=== PATIENT | female | born 1935 | race Two or more races ===

== ENCOUNTER 2016-07-15 17:21 | Inpatient (IN) | payer MEDICARE, OTHER ==
[~2016-07-15] VITALS: Ht 162.6 cm; Wt 99.8 kg
[2016-07-15 18:31] LABS: Basophils # (auto) 0 uL; Eosinophils # (auto) 0 uL; Eosinophils % (auto) 0.1 % (0.0-7.0); Hematocrit 44.9 % (36.0-46.0); Hemoglobin 14.4 g/dL (12.2-16.2); Lymphocytes # (auto) 0.7 uL; Lymphocytes % (auto) 9.5 % (10.0-50.0); Mean Corpuscular Hemoglobin 28.9 pg (28.0-32.0); Mean Corpuscular Volume 90.5 fL (80.0-100.0); Mean Platelet Volume 8.5 fL (7.4-10.4); Monocytes # (auto) 0 uL; Monocytes % (auto) 0.2 % (0.0-12.0); Neutrophils % (auto) 90.2 % (37.0-80.0); Platelet Count (auto) 243 10^3/uL (140-450); Red Cell Distribution Width 14.9 % (11.6-16.0); White Blood Cell 7.8 10^3/uL (4.4-10.8)
[2016-07-15 18:59] LABS: Albumin 3.4 g/dL (3.4-5.0); BUN/Creatinine Ratio 15.7; Magnesium 2.2 mg/dL (1.6-2.6); Potassium 3.6 mmol/L (3.5-5.1)
[2016-07-15 19:02] LABS: Bilirubin, Total 1.7 mg/dL (0.2-1.0); Total Protein 7.1 g/dL (6.4-8.2)
[2016-07-16] MEDS ORDERED: ONDANSETRON HCL 4 MG/2 ML VIAL IV ONE ×2 (01:15→07:45)
[2016-07-16] MEDS ORDERED: HYDROmorphone HCL 2 MG/ML VL IV ONE (01:15)
[2016-07-16] MEDS ORDERED: SODIUM CHLORIDE 0.9% 1,000 ML IV ONE ×3 (01:15→18:45)
[2016-07-16] MEDS ORDERED: FAMOTIDINE (10MG/ML) 2ML VL IV ONE (06:15)
[2016-07-16] MEDS ORDERED: methylPREDNISolone SOD SUCC 125 MG/2 ML VL IV ONE (06:15)
[2016-07-16] MEDS ORDERED: NOREPINEPHRINE BITARTRATE 250 ML IV ONE (06:25)
[2016-07-16] MEDS ORDERED: EPINEPHrine HCL 1 MG/1 ML AMP SC ONE (07:00)
[2016-07-16] MEDS ORDERED: cefTRIAXone 1GM/50ML D5W 50 ML IV ONE (07:00)
[2016-07-16] MEDS ORDERED: metroNIDAZOLE 500MG/100ML 100 ML IV ONE (07:00)
[2016-07-16] MEDS: NOREPINEPHRINE BITARTRATE 250 ML IV SCH (07:24)
[2016-07-16] MEDS ORDERED: ONDANSETRON HCL 4 MG/2 ML VIAL ONE (07:39)
[2016-07-16] MEDS ORDERED: SODIUM CHLORIDE 0.9% 1,000 ML IV SCH (08:18)
[2016-07-16] MEDS ORDERED: PROMETHAZINE HCL 25 MG/ML 1ML IV PRN (08:30)
[2016-07-16] MEDS ORDERED: LORazepam 2MG/ML-1ML VIAL IV PRN (08:30)
[2016-07-16] MEDS ORDERED: NITROGLYCERIN 0.4 MG SL TAB SL PRN (08:30)
[2016-07-16] MEDS ORDERED: MORPHINE SULF INJ 2 MG/ML SYRINGE 1ML IV PRN ×2 (08:30)
[2016-07-16] MEDS ORDERED: cefTRIAXone 1GM/50ML D5W 50 ML IV SCH (09:00)
[2016-07-16] MEDS: FAMOTIDINE (10MG/ML) 2ML VL IV SCH (09:45)
[2016-07-16] MEDS ORDERED: SODIUM CHLORIDE 0.9% 2,000 ML IV ONE (09:45)
[2016-07-16] MEDS ORDERED: FAMOTIDINE (10MG/ML) 2ML VL IV SCH (10:00)
[2016-07-16] MEDS ORDERED: metroNIDAZOLE 500MG/100ML 100 ML IV SCH (14:00)
[2016-07-16] MEDS ORDERED: ETOMIDATE (2MG/ML) 20ML VIAL IV ONE ×2 (14:49→14:59)
[2016-07-16] MEDS ORDERED: SUCCINYLCHOLINE CHLORIDE 20 MG/ML 10ML VIAL IV ONE ×2 (14:49→15:01)
[2016-07-16] MEDS ORDERED: PIPERACILLIN-TAZOB 3.375GM 100 ML IV ONE (15:00)
[2016-07-16] MEDS ORDERED: CLINDAMYCIN 600MG IV 50 ML IV ONE (15:00)
[2016-07-16 15:02] VITALS: BP 85/63
[2016-07-16] MEDS ORDERED: MIDAZOLAM DRIP 100 mg/100mL NS 100 ML IV ONE (15:23)
[2016-07-16] MEDS: MIDAZOLAM DRIP 100 mg/100mL NS 100 ML IV SCH (15:25)
[2016-07-16] MEDS ORDERED: EPINEPHrine HCL 1 MG/10 ML SYRG ONE (16:26)
[2016-07-16] MEDS ORDERED: SODIUM BICARBONATE 8.4% INJ 50ML SYRINGE ONE ×2 (16:27→17:04)
[2016-07-16 16:31] VITALS: BP 125/34
[2016-07-16] MEDS: SODIUM BICARB 50ML SYR 50 ML in D5W/SOD CHL 0.45% 1,000 ML IV SCH (17:15)
[2016-07-16] MEDS: PHENYLEPHRINE INJ 20 MG in SODIUM CHL 0.9% 250 ML IV SCH ×3 (17:40→21:14)
[2016-07-16] MEDS ORDERED: PIPERACILLIN-TAZOB 3.375GM 100 ML IV SCH (18:00)
[2016-07-16 18:23] VITALS: BP 134/76
[2016-07-16] MEDS ORDERED: EPINEPHrine HCL INJECTION 8 MG in D5W 5% 250 ML IV SCH (19:15)
[2016-07-16] MEDS ORDERED: SODIUM BICARBONATE 8.4 % INJ 50ML VIAL IV ONE ×2 (19:45→22:45)
[2016-07-16] MEDS: PIPERACILLIN-TAZOB 2.25GM 50 ML IV SCH ×2 (20:00→22:12)
[2016-07-16 20:11] VITALS: BP 61/59
[2016-07-16] MEDS: ACETAMINOPHEN 650 MG RECT SUPP PR PRN (21:45)
[2016-07-16 22:00] VITALS: BP 77/43
[2016-07-16] MEDS: CLINDAMYCIN 600MG IV 50 ML IV SCH (22:12)
[2016-07-16 23:22] LABS: INR 1.53 (0.9-1.15); Prothrombin Time 15.8 sec (9.37-12.3)
[2016-07-17] VITALS (10 sets, daily range): BP systolic 56–106; BP diastolic 31–61
[2016-07-17] MEDS: SODIUM BICARB 50ML SYR 50 ML in D5W/SOD CHL 0.45% 1,000 ML IV SCH ×3 (00:01→14:21)
[2016-07-17] MEDS: MIDAZOLAM DRIP 100 mg/100mL NS 100 ML IV SCH ×3 (00:03→00:05)
[2016-07-17] MEDS ORDERED: PHENYLEPHRINE IV 250 ML IV ONE ×2 (02:48→06:08)
[2016-07-17] MEDS ORDERED: PHENYLEPHRINE INJ 80 MG in SODIUM CHL 0.9% 250 ML IV SCH (03:00)
[2016-07-17] MEDS: NOREPINEPHRINE BITARTRATE 250 ML IV SCH ×2 (03:07→06:07)
[2016-07-17] MEDS ORDERED: SODIUM BICARBONATE 8.4 % INJ 50ML VIAL IV ONE (05:16)
[2016-07-17] MEDS: PIPERACILLIN-TAZOB 2.25GM 50 ML IV SCH (06:07)
[2016-07-17] MEDS: CLINDAMYCIN 600MG IV 50 ML IV SCH (06:07)
[2016-07-17] MEDS: PHENYLEPHRINE INJ 20 MG in SODIUM CHL 0.9% 250 ML IV SCH ×2 (06:29→14:21)
[2016-07-17 08:16] LABS: Basophils # (auto) 0 uL; Basophils % (auto) 0.2 % (0.0-2.0); Eosinophils # (auto) 0.2 uL; Eosinophils % (auto) 1.1 % (0.0-7.0); Hematocrit 44.6 % (36.0-46.0); Hemoglobin 14.3 g/dL (12.2-16.2); Lymphocytes # (auto) 2.4 uL; Lymphocytes % (auto) 15.2 % (10.0-50.0); Mean Corpuscular Hemoglobin 29.4 pg (28.0-32.0); Mean Corpuscular Hgb Conc. 32.1 g/dL (32.0-36.0); Mean Corpuscular Volume 91.5 fL (80.0-100.0); Mean Platelet Volume 9.9 fL (7.4-10.4); Monocytes # (auto) 0.3 uL; Monocytes % (auto) 1.7 % (0.0-12.0); Neutrophils # (auto) 12.9 uL; Neutrophils % (auto) 81.8 % (37.0-80.0); Platelet Count (auto) 109 10^3/uL (140-450); Red Cell Distribution Width 15.6 % (11.6-16.0); SUSPECT VIEW TRANSMISSION; White Blood Cell 15.7 10^3/uL (4.4-10.8)
[2016-07-17] MEDS: ACETAMINOPHEN 650 MG RECT SUPP PR PRN ×2 (08:24→14:22)
[2016-07-17 08:37] LABS: Albumin 1.9 g/dL (3.4-5.0); Alkaline Phosphatase 123 U/L (45-117); Anion Gap 23 (5-15); Aspartate Aminotransferase 348 U/L (15-37); BUN/Creatinine Ratio 12.4; Bilirubin, Total 2.1 mg/dL (0.2-1.0); Blood Urea Nitrogen 49 mg/dL (7-18); Carbon Dioxide 19 mmol/L (21-32); Chloride 107 mmol/L (98-107); Cholesterol 64 mg/dL (<200); GFR African American 14 mL/min; GFR Non-African American 12 mL/min; Glucose 141 mg/dL (74-106); HDL Cholesterol 12 mg/dL (40-59); LDL Cholesterol 25 mg/dL (<100); Potassium 4.3 mmol/L (3.5-5.1); Sodium 149 mmol/L (136-145); Total Protein 4.7 g/dL (6.4-8.2); Triglycerides 147 mg/dL (<150)
[2016-07-17 08:57] LABS: Calcium 5.5 mg/dL (8.5-10.1)
[2016-07-17 09:35] LABS: Amylase 5752 U/L (25-115)
[2016-07-17 09:54] LABS: Partial Thromboplastin Time 38.7 sec (22.64-33.71)
[2016-07-17 10:41] LABS: INR 1.84 (0.9-1.15)
[2016-07-17] MEDS: FAMOTIDINE (10MG/ML) 2ML VL IV SCH (11:00)
[2016-07-17] MEDS ORDERED: CLINDAMYCIN 600MG IV 50 ML IV SCH (13:00)
[2016-07-17] MEDS ORDERED: PIPERACILLIN-TAZOB 2.25GM 50 ML IV SCH (14:00)
== END 2016-07-17 17:28 | disposition expired | DRG 871 ==
LOC: ER 17:27 → TELE 17:28
PROVIDERS: ADMIT Internal Medicine; ATTEND Internal Medicine
PROC: 5A1935Z Respiratory Ventilation, Less than 24 Consecutive Hours (ICD-10-PCS; principal; 2016-07-16)
PROC: 0BH17EZ Insertion of Endotracheal Airway into Trachea, Via Natural or Artificial Opening (ICD-10-PCS; 2016-07-16)
DX: A41.9 Sepsis, unspecified organism (principal); K85.10 Biliary acute pancreatitis without necrosis or infection; R65.21 Severe sepsis with septic shock; N17.0 Acute kidney failure with tubular necrosis; J96.90 Respiratory failure, unspecified, unspecified whether with hypoxia or hypercapnia; D68.9 Coagulation defect, unspecified; K80.10 Calculus of gallbladder with chronic cholecystitis without obstruction; I10 Essential (primary) hypertension; I95.2 Hypotension due to drugs; K21.9 Gastro-esophageal reflux disease without esophagitis; K57.30 Diverticulosis of large intestine without perforation or abscess without bleeding; I46.9 Cardiac arrest, cause unspecified; Z51.5 Encounter for palliative care
CPT/HCPCS: 36415; 36600; 71010; 74176; 76705; 80053; 80061; 82150; 82805; 82962; 83690; 83735; 85025; 85379; 85610; 85730; 87070; 87077; 87186; 87205; 93005; 93970; 94003; 96361; 96365; 96372; 96375; J0171; J0330; J0696; J2405; J2543; J3490; J7060